=== PATIENT | female | born 1970 | race African-American/Black ===

== ENCOUNTER 2018-09-30 16:51 | Emergency (ER) | payer MEDICAID ==
[~2018-09-30] VITALS: Ht 160 cm; Wt 60.0 kg
[2018-09-30 16:57] VITALS: BP 133/76
[2018-09-30 19:40] LABS: BASOPHILS % 0.9 % (0.0-2.0); EOSINOPHILS % 3.2 % (0.0-5.0); HEMATOCRIT. 42.2 % (36.0-48.0); HEMOGLOBIN. 14.3 g/dL (12.0-16.0); LYMPHOCYTES % 26.7 % (20.0-50.0); MEAN CORPUSCULAR HEMOGLOBIN 33.1 pg (28.0-32.0); MEAN CORPUSCULAR VOLUME 97.3 fL (81.0-99.0); MONOCYTES % 8.6 % (2.0-8.0); NEUTROPHILS % 60.6 % (40.0-76.0); PLATELET 266 x1000/uL (130-400); RED BLOOD CELL COUNT 4.34 mill/uL (4.2-5.4); RED CELL DISTRIBUTION WIDTH 14.2 % (11.6-14.6)
[2018-09-30 19:42] LABS: PROTHROMBIN TIME 10.2 sec (9.6-11.0)
[2018-09-30 19:47] LABS: ETHANOL BLOOD 70 mg/dL
[2018-09-30 19:51] LABS: HCG SCREEN NEGATIVE
[2018-09-30 20:07] LABS: CHLORIDE 111 mEq/L (98-107)
== END 2018-09-30 21:14 | disposition left against medical advice (07) ==
LOC: ER 16:51
DX: F10.229 Alcohol dependence with intoxication, unspecified (principal); R10.13 Epigastric pain; R11.2 Nausea with vomiting, unspecified; I10 Essential (primary) hypertension; E78.00 Pure hypercholesterolemia, unspecified; F17.210 Nicotine dependence, cigarettes, uncomplicated; F12.10 Cannabis abuse, uncomplicated; Y90.3 Blood alcohol level of 60-79 mg/100 ml
CPT/HCPCS: 36415; 80307; 80320; 80329; 81025; 84703; 99283; G0480